=== PATIENT | male | born 1965 | race Caucasian/White ===

== ENCOUNTER 2023-10-16 07:44 | Outpatient (CLI) | payer OTHER, SELFPAY ==
[2023-10-16 09:12] LABS: Alanine Aminotransferase 15 U/L (6-50); Albumin Level 3.9 g/dL (3.5-5.1); Alkaline Phosphatase 66 U/L (38-126); Anion Gap 7 mmol/L (4-12); Aspartate Amino Transferase 21 U/L (17-59); Bilirubin,Total 0.8 mg/dL (0.2-1.3); Blood Urea Nitrogen 24 mg/dL (9-20); Calcium 8.5 mg/dL (8.4-10.2); Carbon Dioxide 28 mmol/L (22-30); Chloride 103 mmol/L (98-107); Cholesterol 148 mg/dL (0-200); Estimated Glomerular Filt Rate > 60; Glucose 88 mg/dL (65-110); HDL Direct 54 mg/dL; Potassium 4.3 mmol/L (3.4-5.0); Sodium 138 mmol/L (137-145); Triglycerides 57 mg/dL (<150)
[2023-10-16 09:13] LABS: Basophils Absolute Auto 0.1 K/mm3 (0.0-0.1); Basophils Percent Auto 0.8 % (0.2-1.2); Eosinophils Absolute Auto 0.2 K/mm3 (0-0.3); Eosinophils Percent Auto 3.6 % (0-4.4); Hematocrit 43.3 % (42.0-52.0); Immature Granulocyte Absolute 0.01 K/mm3 (0.00-0.031); Immature Granulocyte Percent A 0.2 % (0-0.5); Lymphocytes Absolute Auto 1.78 K/mm3 (0.9-3.2); Lymphocytes Percent Auto 26.9 % (18.3-44.2); Mean Corpuscular HGB Conc 32.3 g/dl (32-36); Mean Corpuscular Hemoglobin 29.2 pg (26-34); Mean Corpuscular Volume 90.4 fl (80-100); Mean Platelet Volume 12.1 fl (7.4-10.4); Monocytes Absolute Auto 0.4 K/mm3 (0.1-0.6); Monocytes Percent Auto 6.3 % (2.6-8.5); Neutrophils Absolute Auto 4.1 K/mm3 (1.3-6.7); Neutrophils Percent Auto 62.2 % (45.5-73.1); Platelet Count Result 177 k/mm3 (150-375); Red Blood Count 4.79 M/mm3 (4.6-6.20); Red Cell Distribution Width 13.4 % (11.5-14.5); White Blood Count 6.6 K/mm3 (4.5-10.0)
[2023-10-16 09:23] LABS: LDL Cholesterol Direct 65 mg/dL
[2023-10-20 13:04] LABS: PSA, Free 0.5 ng/mL; PSA, Total 1.9 ng/mL (< OR = 4.0); Percent Free Prostate Spec Ag 26 % (calc) (>25)
== END 2023-10-16 07:45 | disposition home or self-care (01) ==
LOC: ANHLAB 07:48
PROVIDERS: PCP Family Medicine; Visit Provider Family Medicine
DX: Z00.00 Encounter for general adult medical examination without abnormal findings (principal)
CPT/HCPCS: 36415; 80053; 80061; 84153; 84154; 85025

== ENCOUNTER 2024-12-25 08:51 | Outpatient (CLI) | payer OTHER, SELFPAY ==
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
--- OUTSIDE RECORDS SUMMARY | 2024-12-25 09:27 | XMS_ITS | Encounter Summary ---
Author Organization [facility] Address [address] [place] [address] Care Team Providers Care Component Overhaul Operator Name Role Phone Unavailable Primary Care Provider Unavailabl e Encounter Details Date Type Department Care Team (Late st Contact Info) Description 11/15/[address] 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 Gender Identity Not on file Sexual Orientation Not on file documented as of this encounter Plan of Treatment Not on file documented as of this encounter Procedures Procedure Name Priority Date/Time Associated Diagnosis Comments CBC WITH DIFFERENTIAL Routine 11/15/2014 1:00 PM CDT URINALYSIS W/REFLEX MICROSCOPIC Routine 11/15/2014 1:00 PM CDT GGT Routine 11/15/2014 1:00 PM CDT COMPREHENSIVE METABOLIC PANEL Routine 11/15/2014 1:00 PM CDT documented in this encounter Results * GGT (11/15/2014 1:00 PM CDT) GGT 14 8 - 61 U/L 11/15/2014 9:56 PM CDT [facility] Blood 11/15/2014 1:00 PM CDT 11/15/2014 8:53 PM CDT External Provider [facility] CHEMISTRY ORDERABLES Fin al Result [facility] - [facility] CLIA# [id number] [address] [place] [address] * (ABNORMAL) CBC WITH DIFFERENTIAL (11/15/2014 1:00 PM CDT) WBC 7.7 4.0 - 9.8 K/uL 11/15/2014 9:04 PM CDT [facility] - . [facility] RBC 5.16(H) 3.90 - 4.90 M/uL 11/15/2014 9:04 PM CDT [facility] - . [facility] HEMOGLOBIN 15.1 13.6 - 16.5 g/dL 11/15/2014 9:04 PM CDT [facility] - . [facility] HEMATOCRIT 45.8 40.0 - 48.0 % 11/15/2014 9:04 PM CDT [facility] - [facility] MCV 88.8 82.0 - 99.0 fL 11/15/2014 9:04 PM CDT [facility] - [facility] MCH 29.3 27.2 - 32.6 pg 11/15/2014 9:04 PM CDT [facility] - [facility] MCHC 33.0 30.0 - 36.0 g/dL 11/15/2014 9:04 PM CDT [facility] - . [facility] RDW 13.8 11.5 - 14.5 % 11/15/2014 9:04 PM CDT [facility] - [facility] RDW-STDEV 44.6 37.1 - 48.7 fL 11/15/2014 9:04 PM CDT [facility] - . [facility] PLATELETS 196 140 - 350 K/uL 11/15/2014 9:04 PM CDT [facility] - . [facility] MPV 12.5(H) 9.3 - 12.4 fL 11/15/2014 9:04 PM CDT [facility] - [facility] NEUTROPHILS 61 45 - 70 % 11/15/2014 9:04 PM CDT [facility] LYMPHOCYTES 31 16 - 45 % 11/15/2014 9:04 PM CDT [facility] MONOCYTES 6 3 - 13 % 11/15/2014 9:04 PM CDT [facility] EOSINOPHILS 2 <7 % 11/15/2014 9:04 PM CDT [facility] BASOPHILS 0 <3 % 11/15/2014 9:04 PM CDT [facility] NEUTROPHIL ABSOLUTE 4.68 1.90 - 7.00 K/uL 11/15/2014 9:04 PM CDT [facility] LYMPHOCYTE ABSOLUTE 2.39 0.70 - 4.50 K/uL 11/15/2014 9:04 PM CDT [facility] MONOCYTE ABSOLUTE 0.44 0.10 - 1.30 K/uL 11/15/2014 9:04 PM CDT [facility] - [facility] EOSINOPHIL ABSOLUTE 0.15 <0.70 K/uL 11/15/2014 9:04 PM CDT [facility] BASOPHILS ABSOLUTE 0.03 <0.30 K/uL 11/15/2014 9:04 PM CDT [facility] - [facility] Blood 11/15/2014 1:00 PM CDT 11/15/2014 8:53 PM CDT External Provider [facility] HEMATOLOGY ORDERABLES Fi nal Result [facility] - [facility]# [id number] 5 [facility] [place] [address] * (ABNORMAL) COMPREHENSIVE METABOLIC PANEL (11/15/2014 1:00 PM CDT) SODIUM 137 136 - 145 mmol/L 11/15/2014 9:54 PM CDT [facility] - [facility] POTASSIUM 4.5 3.5 - 5.0 mmol/L 11/15/2014 9:54 PM CDT [facility] - [facility] CHLORIDE 99 98 - 107 mmol/L 11/15/2014 9:54 PM CDT [facility] CO2 26 22 - 29 mmol/L 11/15/2014 9:54 PM CDT [facility] - [facility] CALCIUM 9.3 8.6 - 10.2 mg/dL 11/15/2014 9:54 PM CDT [facility] - [facility] BUN 12 6 - 20 mg/dL 11/15/2014 9:54 PM T [facility] - [facility] CREATININE 1.24(H) 0.67 - 1.17 mg/dL 11/15/2014 9:54 PM T [facility] - [facility] GLUCOSE 91 79 - 99 mg/dL 11/15/2014 9:54 PM T [facility] - [facility] TOTAL PROTEIN 7.4 6.7 - 8.6 g/dL 11/15/2014 9:54 PM T [facility] - [facility] ALBUMIN 4.1 3.5 - 5.2 g/dL 11/15/2014 9:54 PM T [facility] - [facility] BILIRUBIN TOTAL 0.3 0.3 - 1.2 mg/dL 11/15/2014 9:54 PM [facility] - [facility] ALKALINE PHOSPHATASE 77 40 - 129 U/L 11/15/2014 9:54 PM [facility] - [facility] AST 27 <41 U/L 11/15/2014 9:54 PM [facility] - [facility] ALT 23 <42 U/L 11/15/2014 9:54 PM [facility] - [facility] GFR >60 >=60 mL/min/1.7 3 sq meter 11/15/2014 9:54 PM [facility] - . [facility] Comment: eGFR has not been validated for use in the elderly (> 70 years of age), women, patients with serious co-morbid conditions, or persons with extremes of body size or muscle mass and should also be interpreted with caution in patients with acute kidney failure, dialysis dependent patients, patients reporting exceptional dietary intake (e.g. vegetarian diet, high protein diets, creatine supplementation), and patients with severe liver disease. Based on National Kidney Disease Education Program If patient is , please refer to the GFR result. GFR, >60 >=60 mL/min/1.7 3 sq meter 11/15/2014 9:54 PM [facility] ANION GAP 12 8 - 16 mmol/L 11/15/2014 9:54 PM [facility] - [facility] Blood 11/15/2014 1:00 PM CDT 11/15/2014 8:53 PM CDT External Provider [facility] CHEMISTRY ORDERABLES Fin al Result [facility] - [facility] CLIA# [id number] [address] [place] [address] * URINALYSIS (11/15/2014 1:00 PM CDT) COLOR UA Yellow Pale to Dark Yellow 11/15/2014 9:07 PM CDT [facility] - [facility] CLARITY UA Clear Clear 11/15/2014 9:07 PM T [facility] - [facility] SPECIFIC GRAVITY UA 1.009 1.003 - 1.035 11/15/2014 9:07 PM [facility] - [facility] PH UA 6.0 5.0 - 8.0 11/15/2014 9:07 PM T [facility] - [facility] LEUKOCYTE ESTERASE UA Negative Negative 11/15/2014 9:07 PM T [facility] - [facility] NITRITE UA Negative Negative 11/15/2014 9:07 PM T [facility] - [facility] PROTEIN UA Negative Negative 11/15/2014 9:07 PM T [facility] - [facility] GLUCOSE UA Negative Negative 11/15/2014 9:07 PM [facility] - [facility] KETONES UA Negative Negative 11/15/2014 9:07 PM T [facility] - [facility] UROBILINOGEN UA Normal <2.0 mg/dL 11/15/2014 9:07 PM T [facility] - [facility] BILIRUBIN UA Negative Negative 11/15/2014 9:07 PM T [facility] - [facility] BLOOD UA Negative Negative 11/15/2014 9:07 PM T [facility] - [facility] Urine, clean catch URINE SPECIMEN OBTAINED BY CLEAN CATCH PROCEDURE / Unknown 11/15/2014 1:00 PM CDT 11/15/2014 8:53 PM CDT External Provider [facility] URINE ORDERABLES Final R esult Performing Organization Address [facility]/ZIP Co de Phone Number [facility]# [id number] [address] [place] [address] documented in this encounter Visit Diagnoses Not on filedocumented in this encounter
--- OUTSIDE RECORDS SUMMARY | 2024-12-25 09:27 | XMS_ITS | Clinical Summary ---
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
[2024-12-25 09:58] LABS: Add Urine Microscopic? NO; Appearance Urine Clear (Clear); Glucose Urine UA Negative (Negative); Leukocyte Esterase Ur Negative LEU/UL (Negative); Nitrate Urine Negative (Negative); Specific Grav Ur 1.025 (1.001-1.035)
[2024-12-25 09:59] LABS: Hematocrit 42.0 % (42.0-52.0); Hemoglobin 13.8 g/dL (14.0-18.0); Immature Granulocyte Percent A 0.3 % (0-0.5); Lymphocytes Absolute Auto 1.95 K/mm3 (0.9-3.2); Mean Corpuscular HGB Conc 32.9 g/dl (32-36); Mean Corpuscular Hemoglobin 29.1 pg (26-34); Mean Corpuscular Volume 88.6 fl (80-100); Nucleated Red Blood Cells Absolute Auto 0.000 K/mm3 (0.0-0.012); Nucleated Red Blood Cells Perc 0.0 % (0.0-0.2); Platelet Count Result 178 k/mm3 (150-375); Red Blood Count 4.74 M/mm3 (4.6-6.20); White Blood Count 6.9 K/mm3 (4.5-10.0)
[2024-12-25 10:20] LABS: Alanine Aminotransferase 15 U/L (6-50); Albumin Level 3.9 g/dL (3.5-5.1); Alkaline Phosphatase 74 U/L (38-126); Anion Gap 6 mmol/L (4-12); Aspartate Amino Transferase 29 U/L (17-59); Bilirubin,Total 0.7 mg/dL (0.2-1.3); Blood Urea Nitrogen 24 mg/dL (9-20); Calcium 8.6 mg/dL (8.4-10.2); Carbon Dioxide 27 mmol/L (22-30); Chloride 105 mmol/L (98-107); Cholesterol 154 mg/dL (0-200); Estimated Glomerular Filt Rate > 60; Glucose 89 mg/dL (65-110); HDL Direct 51 mg/dL; Potassium 4.1 mmol/L (3.4-5.0); Sodium 138 mmol/L (137-145); Total Protein 7.3 g/dL (6.3-8.2); Triglycerides 64 mg/dL (<150)
[2024-12-26 10:08] LABS: PSA, Free 0.38 ng/mL
== END 2024-12-25 08:52 | disposition home or self-care (01) ==
LOC: ANHLAB 08:54
PROVIDERS: PCP Family Medicine; Visit Provider Family Medicine
DX: N40.1 Benign prostatic hyperplasia with lower urinary tract symptoms (principal); R35.0 Frequency of micturition; I10 Essential (primary) hypertension; E78.2 Mixed hyperlipidemia
CPT/HCPCS: 36415; 80053; 80061; 81003; 84153; 84154; 85025

== ENCOUNTER → 2025-01-15 10:44 | Outpatient (REF) | payer OTHER, SELFPAY ==
--- OUTSIDE RECORDS SUMMARY | 2008-08-31 06:00 | XMS_ITS | Continuity of Care Document ---
Author Organization [facility] Address [address] [place] [address] [address] [place] [address] Phone Care Team Providers Care Golf Cart Attendant Name Role Phone Emerald Islas Unavailable Unavailable Procedures Procedure Date Office/outpatient Visit, Est Remove Foreign Body From Eye Advance Directives Directive Yes / No Effective Date File Name No Information Encounters Encounter Description Practice Location Reason(s) For Visit Diagnoses Date Provider Providers Copied on Encounter Office/outpat ient Visit, Est [facility], [address] [place] [address] [address], [place], [place], [id number], tel:[phone] [facility] No Information Cole-1 2-200 9 Janel Corbin. [address] [facility] , [address], [place], [place], [facility] [place], [place]. tel:[phone] [facility], [address] [place] [address] [address], [place], [place], [id number], tel:[phone] [facility] No Information Cole-0 4-200 9 Janel Corbin. [address] [facility] , [address], [place], [address], [place]. tel:[phone] Family History Family Member Type Diagnosis Age At Onset No Information Payers Payer name Insurance type Covered green party ID Authoriza tion(s) No Information Social History Type Description Quantity Date Captured Comments Sex Male Smoking Status No Information Chief Complaint And Reason For Visit No Information Reason For Referral Reason For Referral No Information History Of Present Illness Encounter Date Complaint History Of Prese nt Illness No Information Functional Status Date Functional Assessmen t No Information Instructions Date Instruction Additional Infor mation No Information Assessments Type Assessment Date No Information Patient Care Teams Name Effective Dates (start - stop) Status Members No Information
--- OUTSIDE RECORDS SUMMARY | 2018-09-28 05:40 | XMS_ITS | Continuity of Care Document ---
Author Organization [facility] Address [address] [facility] [address] [place] [address] Phone Care Team Providers Care Settlement Worker Name Role Phone Dank Rizo MD Unavailable Unavailable Allergies, Adverse Reactions, Alerts Substance Reaction Status Criticality No Known Allergies Active No Inform ation Advance Directives Directive Yes / No Effective Date File Name No Information Encounters Encounter Description Practice Location Reason(s) For Visit Diagnoses Date Provider Providers Copied on Encounter [facility] , [address], [address], [place] tel:[phone] [facility] [place] Pain in right wristOther intraarticular fracture of lower end of right radius, subsequent encounter for closed fracture with routine healing 0 9 Darrius Weems. [address] [place], [place], [id number] . tel:[phone] [facility] , [address], [address], [place] tel:[phone] [facility] O [place] Pain in left wristPain in right wristOther intraarticular fracture of lower end of right radius, subsequent encounter for closed fracture with routine healing 0 5 9 Darrius Weems. [address] [place], [place], [id number] . tel:[phone] [facility] , [address], [address], [place] tel:[phone] [facility] [place] Pain in right wristEncounter for other orthopedic aftercare 9 Darrius Weems. [address] [facility] [place], [id number] . tel:[phone] Family History Family Member Type Diagnosis Age [...]
--- NOTE | 2025-01-15 10:44 | S_PTH ---
PATIENT: Rudi Vela LOC: [facility] U#:[id number] AGE/SX: 60/M ROOM: RE01/15/[address]: Siria Solorio PA-C : 1965 BED: DIS: SPEC #: [id number] RECD: 01/15/25 12:43 STATUS: HEIDI REQ #: [id number] VANESA: 01/15/25 10:[address]: Siria Solorio DEPT: [facility] Surgical RECD BY: Yanci Sorto ENTERED: 01/15/25 12:44 SP TYPE: Surgical OTHR DR: Lennie Dan MD Tissues: A - Mass B - Mass Procedures: Hematoxylin and Eosin Stain Gross and Microscopic Level 3
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
--- OUTSIDE RECORDS SUMMARY | 2025-01-15 12:11 | XMS_ITS | Clinical Summary ---
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
--- OUTSIDE RECORDS SUMMARY | 2025-01-15 12:11 | XMS_ITS | Encounter Summary ---
Author Organization [facility] Address [address] [place] [address] Care Team Providers Care Industrial Security Analyst Name Role Phone Unavailable Primary Care Provider Unavailabl e Encounter Details Date Type Department Care Team (Late st Contact Info) Description 11/15/2014 Lab Requisition [facility] General Laboratory Services [address] [employer] [address] [place] [address] [facility], External Provider [address] [place] [address] Social History Tobacco Use Types Packs/Day Years Used Date Smoking Tobacco: Never Assessed Sex and Gender Information Value Date Recorded Sex Assigned at Not on file 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 [facility] RBC 5.16(H) 3.90 - 4.90 M/uL 11/15/2014 9:04 PM CDT [facility] - . [facility] HEMOGLOBIN 15.1 13.6 - 16.5 g/dL 11/15/2014 9:04 PM CDT [facility] - . [facility] HEMATOCRIT 45.8 40.0 - 48.0 % 11/15/2014 9:04 PM CDT [facility] - [facility] MCV 88.8 82.0 - 99.0 fL 11/15/2014 9:04 PM CDT [facility] - [facility] MCH 29.3 27.2 - 32.6 pg 11/15/2014 9:04 PM CDT [facility] - [facility] MCHC 33.0 30.0 - 36.0 g/dL 11/15/2014 9:04 PM CDT [facility] - . [facility] RDW 13.8 11.5 - 14.5 % 11/15/2014 9:04 PM CDT [facility] - [facility] RDW-STDEV 44.6 37.1 - 48.7 fL 11/15/2014 9:04 PM CDT [facility] - . [facility] PLATELETS 196 140 - 350 K/uL 11/15/2014 9:04 PM CDT [facility] - . [facility] MPV 12.5(H) 9.3 - 12.4 fL 11/15/2014 9:04 PM CDT [facility] - [facility] NEUTROPHILS 61 45 - 70 % 11/15/2014 9:04 PM CDT [facility] LYMPHOCYTES 31 16 - 45 % 11/15/2014 9:04 PM CDT [facility] MONOCYTES 6 3 - 13 % 11/15/2014 9:04 PM CDT [facility] - [facility] EOSINOPHILS 2 <7 % 11/15/2014 9:[address] [facility] BASOPHILS 0 <3 % 11/15/2014 9:[address] [facility] NEUTROPHIL ABSOLUTE 4.68 1.90 - 7.00 K/uL 11/15/2014 9:04 PM CDT [facility] - [facility] LYMPHOCYTE ABSOLUTE 2.39 0.70 - 4.50 K/uL 11/15/2014 9:[address] [facility] MONOCYTE ABSOLUTE 0.44 0.10 - 1.30 K/uL 11/15/2014 9:04 PM CDT [facility] - [facility] EOSINOPHIL ABSOLUTE 0.15 <0.70 K/uL 11/15/2014 9:04 PM CDT [facility] - [facility] BASOPHILS ABSOLUTE 0.03 <0.30 K/uL 11/15/2014 9:04 PM CDT [facility] - [facility] Blood 11/15/2014 1:00 PM CDT 11/15/2014 8:53 PM CDT External Provider [facility] HEMATOLOGY ORDERABLES Fi nal Result [facility] - [facility]# [id number] [address] [facility] [address] * (ABNORMAL) COMPREHENSIVE METABOLIC PANEL (11/15/2014 1:00 PM CDT) SODIUM 137 136 - 145 mmol/L 11/15/2014 9:54 PM CDT [facility] - [facility] POTASSIUM 4.5 3.5 - 5.0 mmol/L 11/15/2014 9:54 PM CDT [facility] CHLORIDE 99 98 - 107 mmol/L 11/15/2014 9:54 PM CDT [facility] - [facility] CO2 26 22 - 29 mmol/L 11/15/2014 9:54 PM CDT [facility] - [facility] CALCIUM 9.3 8.6 - 10.2 mg/dL 11/15/2014 9:54 PM CDT [facility] BUN 12 6 - 20 mg/dL 11/15/2014 9:54 PM T [facility] CREATININE 1.24(H) 0.67 - 1.17 mg/dL 11/15/2014 9:54 PM T [facility] GLUCOSE 91 79 - 99 mg/dL 11/15/2014 9:54 PM T [facility] - [facility] TOTAL PROTEIN 7.4 6.7 - 8.6 g/dL 11/15/2014 9:54 PM T [facility] ALBUMIN 4.1 3.5 - 5.2 g/dL 11/15/2014 9:54 PM T [facility] - [facility] BILIRUBIN TOTAL 0.3 0.3 - 1.2 mg/dL 11/15/2014 9:54 PM [facility] - [facility] ALKALINE PHOSPHATASE 77 40 - 129 U/L 11/15/2014 9:54 PM [facility] - [facility] AST 27 <41 U/L 11/15/2014 9:54 PM [facility] - [facility] ALT 23 <42 U/L 11/15/2014 9:54 PM [facility] - [facility] GFR >60 >=60 mL/min/1.7 3 sq meter 11/15/2014 9:54 PM [facility] - . [facility] Comment: eGFR [...] mL/min/1.7 3 sq meter 11/15/2014 9:54 PM [facility] - [facility] ANION GAP 12 8 - 16 mmol/L 11/15/2014 9:54 PM [facility] - [facility] Blood 11/15/2014 1:00 PM CDT 11/15/2014 8:53 PM CDT External Provider [facility] CHEMISTRY ORDERABLES Fin al Result [facility] - [facility] CLIA# [id number] [address] [place] [address] * URINALYSIS (11/15/2014 1:00 PM CDT) COLOR UA Yellow Pale to Dark Yellow 11/15/2014 9:07 PM CDT [facility] - [facility] CLARITY UA Clear Clear 11/15/2014 9:07 PM T [facility] - [facility] SPECIFIC GRAVITY UA 1.009 1.003 - 1.035 11/15/2014 9:07 PM [facility]AT[facility] SERVICES - [facility] PH UA 6.0 5.0 - 8.0 11/15/2014 9:07 PM T [facility] - [facility] LEUKOCYTE ESTERASE UA Negative Negative 11/15/2014 9:07 PM T [facility] - [facility] NITRITE UA Negative Negative 11/15/2014 9:07 PM T [facility] - [facility] PROTEIN UA Negative Negative 11/15/2014 9:07 PM T [facility] SERVICES - [facility] GLUCOSE UA Negative Negative 11/15/2014 9:07 PM [facility] LABORATORY SERVICES - [facility] KETONES UA Negative Negative 11/15/2014 9:07 PM T [facility] SERVICES - [facility] UROBILINOGEN UA Normal <2.0 mg/dL 11/15/2014 9:07 PM T [facility] - [facility] BILIRUBIN UA Negative Negative 11/15/2014 9:07 PM T [facility] - [facility] BLOOD UA Negative Negative 11/15/2014 9:07 PM T [facility] SERVICES - [facility] Urine, clean catch URINE SPECIMEN OBTAINED BY CLEAN CATCH PROCEDURE / Unknown 11/15/2014 1:00 PM CDT 11/15/2014 8:53 PM CDT External Provider [facility] URINE ORDERABLES Final R esult Performing Organization Address [facility]/ZIP Co de Phone Number [facility]# [id number] [address] [place] [address] documented in this encounter Visit Diagnoses Not on filedocumented in this encounter
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
== END ==
LOC: ANHLAB 10:44
PROVIDERS: PCP Family Medicine; Visit Provider Physician Assistant Surgical
DX: D17.21 Benign lipomatous neoplasm of skin and subcutaneous tissue of right arm (principal)
CPT/HCPCS: 88304

== ENCOUNTER → 2025-01-29 09:01 | Outpatient (REF) | payer OTHER, SELFPAY ==
--- OUTSIDE RECORDS SUMMARY | 2018-09-28 04:40 | XMS_ITS | Continuity of Care Document ---
Author Organization [facility] Address [address] [facility] [address] [place] [address] Phone Care Team Providers Care Gynaecological Oncologist Name Role Phone Dank Rizo MD Unavailable Unavailable Allergies, Adverse Reactions, Alerts Substance Reaction Status Criticality No Known Allergies Active No Inform ation Advance Directives Directive Yes / No Effective Date File Name No Information Encounters Encounter Description Practice Location Reason(s) For Visit Diagnoses Date Provider Providers Copied on Encounter [facility] , [address], [address], [place] tel:[phone] [facility] O [place] Pain in right wristOther intraarticular fracture of lower end of right radius, subsequent encounter for closed fracture with routine healing 9 Darrius Weems. [address] [place], [place], [id number] . tel:[phone] [facility] , [address], [address], [place] tel:[phone] [facility] O [place] Pain in left wristPain in right wristOther intraarticular fracture of lower end of right radius, subsequent encounter for closed fracture with routine healing 0 9 Darrius Weems. [address] [place], [place], [id number] . tel:[phone] [facility] , [address], [address], [place] tel:[phone] [facility] [place] Pain in right wristEncounter for other orthopedic aftercare 9 Darrius Weems. [address] [facility] [place], [id number] . tel:[phone] Family History Family Member Type Diagnosis Age At Onset Problem (finding) Family history of hyper tension Payers Payer name Insurance type Covered green [...]
--- NOTE | 2025-01-29 09:01 | S_PTH ---
PATIENT: Rudi Vela LOC: [facility] U#:[id number] AGE/SX: 60/M ROOM: RE01/29/[address]: Siria Solorio PA-C : 1965 BED: DIS: SPEC #: [id number] RECD: 01/29/25 12:57 STATUS: HEIDI RECelso #: [id number] VANESA: 01/29/25 09:[address]: Siria Solorio DEPT: [facility] Surgical RECD BY: Addie Pineda ENTERED: 01/29/25 12:58 SP TYPE: Surgical OTHR DR: Wei Rodrigues MD Tissues: A - Mass B - Mass Procedures: Hematoxylin and Eosin Stain Gross and Microscopic Level 3
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
--- OUTSIDE RECORDS SUMMARY | 2025-01-29 09:32 | XMS_ITS | Clinical Summary ---
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
--- OUTSIDE RECORDS SUMMARY | 2025-01-29 09:32 | XMS_ITS | Encounter Summary ---
Author Organization [facility] Address [address] [place] [address] Care Team Providers Care Non Ferrous Material Handler Name Role Phone Unavailable Primary Care Provider Unavailabl e Encounter Details Date Type Department Care Team (Late st Contact Info) Description 11/15/2014 Lab Requisition [facility] [address] [place] [address] [facility], External Provider [address] [place] [address] Social History Tobacco Use Types Packs/Day Years Used Date Smoking Tobacco: Never Assessed Sex and Gender Information Value Date Recorded Sex Assigned at Not on file 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 RBC 5.16(H) 3.90 - 4.90 M/uL 11/15/2014 9:04 PM CDT [facility] HEMOGLOBIN 15.1 13.6 - 16.5 g/dL 11/15/2014 9:04 PM CDT [facility] HEMATOCRIT 45.8 40.0 - 48.0 % 11/15/2014 9:04 PM CDT [facility] MCV 88.8 82.0 - 99.0 fL 11/15/2014 9:04 PM CDT [facility] MCH 29.3 27.2 - 32.6 pg 11/15/2014 9:04 PM CDT [facility] MCHC 33.0 30.0 - 36.0 g/dL 11/15/2014 9:04 PM CDT [facility] RDW 13.8 11.5 - 14.5 % 11/15/2014 9:04 PM CDT [facility] RDW-STDEV 44.6 37.1 - 48.7 fL 11/15/2014 9:04 PM CDT [facility] PLATELETS 196 140 - 350 K/uL 11/15/2014 9:04 PM CDT [facility] MPV 12.5(H) 9.3 - 12.4 fL 11/15/2014 9:04 PM CDT [facility] NEUTROPHILS 61 45 - 70 % 11/15/2014 9:04 PM CDT [facility] LYMPHOCYTES 31 16 - 45 % 11/15/2014 9:04 PM CDT [facility] MONOCYTES 6 3 - 13 % 11/15/2014 9:04 PM CDT [facility] EOSINOPHILS 2 <7 % 11/15/2014 9:04 PM CDT [facility] BASOPHILS 0 <3 % 11/15/2014 9:04 PM CDT [facility] NEUTROPHIL ABSOLUTE 4.68 1.90 - 7.00 K/uL 11/15/2014 9:04 PM CDT [facility] LYMPHOCYTE ABSOLUTE 2.39 0.70 - 4.50 K/uL 11/15/2014 9:04 PM CDT [facility] MONOCYTE ABSOLUTE 0.44 0.10 - 1.30 K/uL 11/15/2014 9:04 PM CDT [facility] EOSINOPHIL ABSOLUTE 0.15 <0.70 K/uL 11/15/2014 9:04 PM CDT [facility] BASOPHILS ABSOLUTE 0.03 <0.30 K/uL 11/15/2014 9:04 PM CDT [facility] Blood 11/15/2014 1:00 PM CDT 11/15/2014 8:53 PM CDT External Provider [facility] HEMATOLOGY ORDERABLES Fi nal Result [facility]# [id number] [address] [facility] [place] [place] [address] * (ABNORMAL) COMPREHENSIVE METABOLIC PANEL (11/15/2014 1:00 PM CDT) SODIUM 137 136 - 145 mmol/L 11/15/2014 9:54 PM CDT [facility] POTASSIUM 4.5 3.5 - 5.0 mmol/L 11/15/2014 9:54 PM CDT [facility] CHLORIDE 99 98 - 107 mmol/L 11/15/2014 9:54 PM CDT [facility] CO2 26 22 - 29 mmol/L 11/15/2014 9:54 PM CDT [facility] CALCIUM 9.3 8.6 - 10.2 mg/dL 11/15/2014 9:54 PM CDT [facility] BUN 12 6 - 20 mg/dL 11/15/2014 9:54 PM T [facility] CREATININE 1.24(H) 0.67 - 1.17 mg/dL 11/15/2014 9:54 PM T [facility] GLUCOSE 91 79 - 99 mg/dL 11/15/2014 9:54 PM T [facility] TOTAL PROTEIN 7.4 6.7 - 8.6 g/dL 11/15/2014 9:54 PM T [facility] ALBUMIN 4.1 3.5 - 5.2 g/dL 11/15/2014 9:54 PM T [facility] BILIRUBIN TOTAL 0.3 0.3 - 1.2 mg/dL 11/15/2014 9:54 PM [facility] ALKALINE PHOSPHATASE 77 40 - 129 U/L 11/15/2014 9:54 PM [facility] AST 27 <41 U/L 11/15/2014 9:54 PM [facility] ALT 23 <42 U/L 11/15/2014 9:54 PM [facility] GFR >60 >=60 mL/min/1.7 3 sq meter 11/15/2014 9:54 PM [facility] Comment: eGFR [...] mL/min/1.7 3 sq meter 11/15/2014 9:54 PM [facility] ANION GAP 12 8 - 16 mmol/L 11/15/2014 9:54 PM [facility] Blood 11/15/2014 1:00 PM CDT 11/15/2014 8:53 PM CDT External Provider [facility] CHEMISTRY ORDERABLES Fin al Result [facility] CLIA# [id number] [address] [place] [address] * URINALYSIS (11/15/2014 1:00 PM CDT) COLOR UA Yellow Pale to Dark Yellow 11/15/2014 9:07 PM CDT [facility] CLARITY UA Clear Clear 11/15/2014 9:07 PM T [facility] SPECIFIC GRAVITY UA 1.009 1.003 - 1.035 11/15/2014 9:07 PM [facility] PH UA 6.0 5.0 - 8.0 11/15/2014 9:07 PM T [facility] LEUKOCYTE ESTERASE UA Negative Negative 11/15/2014 9:07 PM T [facility] NITRITE UA Negative Negative 11/15/2014 9:07 PM T [facility] PROTEIN UA Negative Negative 11/15/2014 9:07 PM T [facility] GLUCOSE UA Negative Negative 11/15/2014 9:07 PM [facility] KETONES UA Negative Negative 11/15/2014 9:07 PM T [facility] UROBILINOGEN UA Normal <2.0 mg/dL 11/15/2014 9:07 PM T [facility] BILIRUBIN UA Negative Negative 11/15/2014 9:07 PM T [facility] BLOOD UA Negative Negative 11/15/2014 9:07 PM T [facility] Urine, clean catch URINE SPECIMEN OBTAINED BY CLEAN CATCH PROCEDURE / Unknown 11/15/2014 1:00 PM CDT 11/15/2014 8:53 PM CDT External Provider [facility] URINE ORDERABLES Final R esult Performing Organization Address [facility]/ZIP Co de Phone Number [facility]# [id number] [address] [place] [address] documented in this encounter Visit Diagnoses Not on filedocumented in this encounter
== END ==
LOC: ANHLAB 09:01
PROVIDERS: PCP Family Medicine; Visit Provider Physician Assistant Surgical
DX: D17.22 Benign lipomatous neoplasm of skin and subcutaneous tissue of left arm (principal)
CPT/HCPCS: 88304

== ENCOUNTER → 2025-02-13 08:35 | Outpatient (REF) | payer OTHER, SELFPAY ==
--- NOTE | 2025-02-13 08:35 | S_PTH ---
PATIENT: Rudi Vela LOC: [facility] U#:[id number] AGE/SX: 59/M ROOM: RE02/13/[address]: Siria Solorio PA-C : 1965 BED: DIS: SPEC #: [id number] RECD: 02/13/25 10:46 STATUS: HEIDI REQ #: [id number] VANESA: 02/13/25 08:[address]: Siria Solorio DEPT: [facility] Surgical RECD BY: Yanci Sorto ENTERED: 02/13/25 10:46 SP TYPE: Surgical OTHR DR: Wei Rodrigues MD Tissues: A - Skin Procedures: Hematoxylin and Eosin Stain Gross and Microscopic Level 4
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
--- OUTSIDE RECORDS SUMMARY | 2025-02-13 08:47 | XMS_ITS | Clinical Summary ---
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
--- OUTSIDE RECORDS SUMMARY | 2025-02-13 08:47 | XMS_ITS | Encounter Summary ---
Author Organization [facility] Address [address] [place] [address] Care Team Providers Care Live Ammunition Inspector Name Role Phone Unavailable Primary Care Provider Unavailabl e Encounter Details Date Type Department Care Team (Late st Contact Info) Description 11/15/2014 Lab Requisition [facility] General [facility] [address] [place] [address] [address] [facility], External Provider [address] [place] [address] Social History Tobacco Use Types Packs/Day Years Used Date Smoking Tobacco: Never Assessed Sex and Gender Information Value Date Recorded Sex Assigned at Not on file 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 RBC 5.16(H) 3.90 - 4.90 M/uL 11/15/2014 9:04 PM CDT [employer] LABORATORY SERVICES - . [facility] HEMOGLOBIN 15.1 13.6 - 16.5 g/dL 11/15/2014 9:04 PM CDT [employer] [facility]ORY SERVICES - . [facility] HEMATOCRIT 45.8 40.0 - 48.0 % 11/15/2014 9:04 PM CDT [facility] [facility] - [facility] MCV 88.8 82.0 - 99.0 fL 11/15/2014 9:04 PM CDT [facility] [facility] - [facility] MCH 29.3 27.2 - 32.6 pg 11/15/2014 9:04 PM CDT [facility] [facility] - [facility] MCHC 33.0 30.0 - 36.0 g/dL 11/15/2014 9:04 PM CDT [employer] [facility]ATORY SERVICES - . [facility] RDW 13.8 11.5 - 14.5 % 11/15/2014 9:04 PM CDT [facility] [facility] - [facility] RDW-STDEV 44.6 37.1 - 48.7 fL 11/15/2014 9:04 PM CDT [employer] [facility]ORY SERVICES - . [facility] PLATELETS 196 140 - 350 K/uL 11/15/2014 9:04 PM CDT [employer] [facility]ORY SERVICES - . [facility] MPV 12.5(H) 9.3 - 12.4 fL 11/15/2014 9:04 PM CDT [facility] [facility] NEUTROPHILS 61 45 - 70 % 11/15/2014 9:04 PM CDT [facility] [facility] LYMPHOCYTES 31 16 - 45 % 11/15/2014 9:04 PM CDT [facility] [facility] MONOCYTES 6 3 - 13 % 11/15/2014 9:04 PM CDT [facility] [facility] - [facility] EOSINOPHILS 2 <7 % 11/15/2014 9:04 PM CDT [facility] BASOPHILS 0 <3 % 11/15/2014 9:04 PM CDT [facility] NEUTROPHIL ABSOLUTE 4.68 1.90 - 7.00 K/uL 11/15/2014 9:04 PM CDT [facility] LYMPHOCYTE ABSOLUTE 2.39 0.70 - 4.50 K/uL 11/15/2014 9:04 PM CDT [facility] MONOCYTE ABSOLUTE 0.44 0.10 - 1.30 K/uL 11/15/2014 9:04 PM CDT [facility] - [facility] EOSINOPHIL ABSOLUTE 0.15 <0.70 K/uL 11/15/2014 9:04 PM CDT [facility] BASOPHILS ABSOLUTE 0.03 <0.30 K/uL 11/15/2014 9:04 PM CDT [facility] Blood 11/15/2014 1:00 PM CDT 11/15/2014 8:53 PM CDT External Provider [facility] HEMATOLOGY ORDERABLES Fi nal Result [facility] SERVICES - [facility]# [id number] [address] [facility] [place] [address] * (ABNORMAL) COMPREHENSIVE METABOLIC PANEL (11/15/2014 1:00 PM CDT) SODIUM 137 136 - 145 mmol/L 11/15/2014 9:54 PM CDT [facility] POTASSIUM 4.5 3.5 - 5.0 mmol/L 11/15/2014 9:54 PM CDT [facility] [facility] CHLORIDE 99 98 - 107 mmol/L 11/15/2014 9:54 PM CDT [facility] CO2 26 22 - 29 mmol/L 11/15/2014 9:54 PM CDT [facility] CALCIUM 9.3 8.6 - 10.2 mg/dL 11/15/2014 9:54 PM CDT [facility] [employer] [facility] BUN 12 6 - 20 mg/dL 11/15/2014 9:54 PM T [facility] CREATININE 1.24(H) 0.67 - 1.17 mg/dL 11/15/2014 9:54 PM T [facility] [facility] GLUCOSE 91 79 - 99 mg/dL 11/15/2014 9:54 PM T [facility] TOTAL PROTEIN 7.4 6.7 - 8.6 g/dL 11/15/2014 9:54 PM T [facility] - [facility] ALBUMIN 4.1 3.5 - 5.2 g/dL 11/15/2014 9:54 PM T [facility] - [facility] BILIRUBIN TOTAL 0.3 0.3 - 1.2 mg/dL 11/15/2014 9:54 PM [employer] LABORATORY SERVICES - [facility] ALKALINE PHOSPHATASE 77 40 - 129 U/L 11/15/2014 9:54 PM [employer] [facility] - [facility] AST 27 <41 U/L 11/15/2014 9:54 PM [employer] [facility] - [facility] ALT 23 <42 U/L 11/15/2014 9:54 PM [employer] [facility] - [facility] GFR >60 >=60 mL/min/1.7 3 sq meter 11/15/2014 9:54 PM [employer] [facility] - [facility] Comment: eGFR [...] mL/min/1.7 3 sq meter 11/15/2014 9:54 PM [employer] [employer] [facility] ANION GAP 12 8 - 16 mmol/L 11/15/2014 9:54 PM [employer] LAB[facility]ATORY SERVICES - [facility] Blood 11/15/2014 1:00 PM CDT 11/15/2014 8:53 PM CDT External Provider [facility] CHEMISTRY ORDERABLES Fin al Result [facility] SERVICES - [facility] CLIA# [id number] [address] [place] [address] * URINALYSIS (11/15/2014 1:00 PM CDT) COLOR UA Yellow Pale to Dark Yellow 11/15/2014 9:07 PM CDT [facility] - [facility] CLARITY UA Clear Clear 11/15/2014 9:07 PM T [facility] - [facility] SPECIFIC GRAVITY UA 1.009 1.003 - 1.035 11/15/2014 9:07 PM [facility] - [facility] PH UA 6.0 5.0 - 8.0 11/15/2014 9:07 PM T [facility] - [facility] LEUKOCYTE ESTERASE UA Negative Negative 11/15/2014 9:07 PM T [facility] - [facility] NITRITE UA Negative Negative 11/15/2014 9:07 PM T [facility] - [facility] PROTEIN UA Negative Negative 11/15/2014 9:07 PM T [facility] - [facility] GLUCOSE UA Negative Negative 11/15/2014 9:07 PM [facility] - [facility] KETONES UA Negative Negative 11/15/2014 9:07 PM T [facility] - [facility] UROBILINOGEN UA Normal <2.0 mg/dL 11/15/2014 9:07 PM T [facility] - [facility] BILIRUBIN UA Negative Negative 11/15/2014 9:07 PM T [facility] - [facility] BLOOD UA Negative Negative 11/15/2014 9:07 PM T [facility] - [facility] Urine, clean catch URINE SPECIMEN OBTAINED BY CLEAN CATCH PROCEDURE / Unknown 11/15/2014 1:00 PM CDT 11/15/2014 8:53 PM CDT External Provider [facility] URINE ORDERABLES Final R esult Performing Organization Address [facility]/ZIP Co de Phone Number [facility]# [id number] [address] [place] [address] documented in this encounter Visit Diagnoses Not on filedocumented in this encounter
--- OUTSIDE RECORDS SUMMARY | 2025-02-13 08:47 | XMS_ITS | Clinical Summary ---
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
== END ==
LOC: ANHLAB 08:35
PROVIDERS: PCP Family Medicine; Visit Provider Physician Assistant Surgical
DX: L91.8 Other hypertrophic disorders of the skin (principal)
CPT/HCPCS: 88305